=== PATIENT | female | born 2000 | race Caucasian/White ===

== ENCOUNTER → 2022-01-22 | Outpatient (REF) | payer OTHER | LOC: M SFHCWAGY 17:23 | PROVIDERS: ATTEND Nurse Practitioner Family | DX: Z12.4 Encounter for screening for malignant neoplasm of cervix (principal) ==

== ENCOUNTER → 2022-05-20 | Outpatient (REF) | payer OTHER | LOC: M PLALAB 11:03 | PROVIDERS: ATTEND Advanced Practice Midwife | DX: Z53.9 Procedure and treatment not carried out, unspecified reason (principal) ==

== ENCOUNTER → 2022-06-23 | Outpatient (REF) | payer OTHER ==
[2022-06-23 13:48] LABS: GC DNA AMPLIFICATION NEGATIVE (NEGATIVE)
== END ==
LOC: M SFHCLERA 11:19
PROVIDERS: ATTEND Student in an Organized Health Care Education/Training Program
DX: Z12.4 Encounter for screening for malignant neoplasm of cervix (principal); Z20.2 Contact with and (suspected) exposure to infections with a predominantly sexual mode of transmission
CPT/HCPCS: 87661; 87810; 87850; G0463

== ENCOUNTER → 2022-08-04 | Outpatient (CLI) | payer OTHER | LOC: M WHC 10:31 | PROVIDERS: ATTEND Obstetrics & Gynecology | DX: O32.1XX0 Maternal care for breech presentation, not applicable or unspecified (principal); Z3A.21 21 weeks gestation of pregnancy ==

== ENCOUNTER → 2022-09-24 | Outpatient (CLI) | payer OTHER | LOC: M LAB 08:13 | PROVIDERS: ATTEND Advanced Practice Midwife | DX: O99.810 Abnormal glucose complicating pregnancy (principal); Z3A.00 Weeks of gestation of pregnancy not specified ==

== ENCOUNTER → 2022-11-18 | Outpatient (REF) | payer OTHER | LOC: M PLALAB 15:26 | PROVIDERS: ATTEND Advanced Practice Midwife | DX: O24.410 Gestational diabetes mellitus in pregnancy, diet controlled (principal) | CPT/HCPCS: 87081; G0463 ==

== ENCOUNTER → 2022-11-26 | Outpatient (CLI) | payer OTHER ==
[~2022-11-26] MED LIST: ABIL1TAB11 PO; IBUP80TA PO; PRENTAB9 PO; WELLTAB38 PO
[2022-11-26 16:00] LABS: HEMATOCRIT 40.9 % (36.0-47.0); HEMOGLOBIN 13.5 g/dl (12.0-15.5); MEAN CORPUSCULAR HEMOGLOBIN 29.5 pg (27.0-33.0); MEAN CORPUSCULAR VOLUME 89.3 fl (80.0-96.0); PLATELET COUNT, AUTOMATED 179 10^3/uL (150-450); RED BLOOD COUNT 4.58 10^6/uL (4.00-5.40)
[2022-11-26 16:17] LABS: URIC ACID 5.6 MG/DL (3.1-7.8)
[2022-11-26 16:19] LABS: LDH LACTATE DEHYDROGENASE 183 U/L (120-246)
[2022-11-26 16:20] LABS: ALT/SGPT 67 U/L (7.0-40); AST/SGOT 45 U/L (<34); BILIRUBIN,TOTAL 0.6 MG/DL (0.3-1.2); CREATININE FOR GFR 0.75 MG/DL (0.55-1.30); GLOMERULAR FILTRATION RATE > 60.0 (>60)
[2022-11-26 16:22] LABS: TOTAL PROTEIN,RANDOM URINE 232.9 MG/DL (0.0-14.0)
== END ==
LOC: M PLALAB 14:30
PROVIDERS: ATTEND Advanced Practice Midwife
DX: O16.3 Unspecified maternal hypertension, third trimester (principal); Z3A.37 37 weeks gestation of pregnancy; O24.410 Gestational diabetes mellitus in pregnancy, diet controlled
CPT/HCPCS: 36415; 82247; 82565; 82570; 83615; 84156; 84450; 84460; 84550; 85027; G0463

== ENCOUNTER 2022-11-27 11:30 | Inpatient (IN) | payer OTHER ==
[2022-11-27] VITALS (15 sets, daily range): BP systolic 132–162; BP diastolic 80–114
[~2022-11-27] VITALS: Ht 152.4 cm; Wt 80.8 kg
[2022-11-27] MEDS ORDERED: PRENTAB9 PO (11:44)
[2022-11-27] MEDS ORDERED: OXYTOCIN DRIP 30 UNITS in IV 1 EA IV PRN (11:50)
[2022-11-27] MEDS ORDERED: CARBOPROST TROMETHAMINE 250 MCG/ML AMP IM PRN (11:50)
[2022-11-27] MEDS ORDERED: TRANEXAMIC ACID INJection 1,000 MG in NS 100 ML IV PRN (11:50)
[2022-11-27] MEDS ORDERED: LIDOCAINE 1% MDV 20ML VIAL INFIL PRN (11:50)
[2022-11-27] MEDS ORDERED: ABIL1TAB11 PO ×2 (11:52→13:21)
[2022-11-27] MEDS ORDERED: WELLTAB38 PO ×2 (11:53→13:22)
[2022-11-27] MEDS ORDERED: HOME MED LIST COMPLETE! XX SCH (12:25)
[2022-11-27 12:28] LABS: HEMATOCRIT 40.7 % (36.0-47.0); HEMOGLOBIN 13.3 g/dl (12.0-15.5); MEAN CORPUSCULAR HEMOGLOBIN 28.7 pg (27.0-33.0); MEAN CORPUSCULAR HGB CONC 32.7 g/dl (32.0-36.5); MEAN CORPUSCULAR VOLUME 87.7 fl (80.0-96.0); PLATELET COUNT, AUTOMATED 161 10^3/uL (150-450); RED BLOOD COUNT 4.64 10^6/uL (4.00-5.40)
[2022-11-27] MEDS: miSOPROStol 50MCG 1/2 TABLET PO SCH ×3 (12:50→21:04)
[2022-11-27 12:55] LABS: LDH LACTATE DEHYDROGENASE 212 U/L (120-246)
[2022-11-27 12:56] LABS: ALT/SGPT 66 U/L (7.0-40); AST/SGOT 47 U/L (<34); BILIRUBIN,TOTAL 0.6 MG/DL (0.3-1.2); CREATININE FOR GFR 0.65 MG/DL (0.55-1.30); GLOMERULAR FILTRATION RATE > 60.0 (>60)
[2022-11-27 13:20] LABS: URIC ACID 5.2 MG/DL (3.1-7.8)
[2022-11-27] MEDS: LR 1,000 ML IV SCH (19:50)
[2022-11-27] MEDS: buPROPion **XL** TABLET 150MG (WELLBUTRIN XL) PO SCH (21:04)
[2022-11-28] VITALS (47 sets, daily range): BP systolic 125–185; BP diastolic 75–116
[2022-11-28] MEDS: miSOPROStol 50MCG 1/2 TABLET PO SCH ×4 (01:13→13:00)
[2022-11-28] MEDS: LR 1,000 ML IV SCH ×4 (03:50→20:34)
[2022-11-28] MEDS ORDERED: OXYTOCIN DRIP 30 UNITS in IV 1 EA IV SCH (09:45)
[2022-11-28] MEDS ORDERED: PROMETHAZINE 25MG/ML 1ML VIAL IV ONE (15:15)
[2022-11-28] MEDS: NALBUPHINE HCL 1MG/0.1ML (100MG/10ML) MDV IV PRN ×2 (15:27→15:45)
[2022-11-28] MEDS ORDERED: LABETALOL 100MG/20ML VIAL IV STA (17:09)
[2022-11-28] MEDS ORDERED: ONDANSETRON 4MG 2ML VIAL IV PRN ×2 (18:30→19:40)
[2022-11-28] MEDS ORDERED: EPIDURAL/PCA KEYS XX PRN (19:40)
[2022-11-28] MEDS ORDERED: LR 500 ML IV PRN (19:40)
[2022-11-28] MEDS ORDERED: NALOXONE INJ 0.4MG/1ML VIAL IV PRN (19:40)
[2022-11-28] MEDS ORDERED: diphenhydrAMINE 50MG/ML VIAL IV PRN (19:40)
[2022-11-28] MEDS ORDERED: ePHEDrine SULFATE 25 MG/5 ML(5MG/ML) SYRINGE IVP PRN (19:40)
[2022-11-28] MEDS: FENTANYL/ROPIVACAINE/NACL BAG 100 ML EPIDURAL SCH (20:17)
[2022-11-28] MEDS: buPROPion **XL** TABLET 150MG (WELLBUTRIN XL) PO SCH (21:46)
[2022-11-29] VITALS (22 sets, daily range): BP systolic 124–179; BP diastolic 69–108; O2SAT 97–100
[2022-11-29] MEDS: LR 1,000 ML IV SCH (03:12)
[2022-11-29] MEDS: FENTANYL/ROPIVACAINE/NACL BAG 100 ML EPIDURAL SCH (04:08)
[2022-11-29] MEDS ORDERED: IBUPROFEN 600MG TAB PO PRN (05:35)
[2022-11-29] MEDS ORDERED: ACETAMINOPHEN 500 MG TAB PO PRN (05:35)
[2022-11-29] MEDS ORDERED: DIBUCAINE 1% OINTMENT 30GM TOP PRN (05:35)
[2022-11-29] MEDS ORDERED: IBUPROFEN 800 MG TAB PO PRN (05:35)
[2022-11-29] MEDS ORDERED: RHOGAM 300MCG (1500IU) INJ IM SCH (05:35)
[2022-11-29] MEDS ORDERED: ONDANSETRON 4MG 2ML VIAL IV PRN (05:35)
[2022-11-29] MEDS ORDERED: ANUSOL HC CREAM 30GM TOP PRN (05:35)
[2022-11-29] MEDS ORDERED: DOCUSATE SODIUM 100MG CAPSULE PO PRN (05:35)
[2022-11-29] MEDS ORDERED: OXYTOCIN DRIP 30 UNITS in IV 1 EA IV SCH ×3 (05:35→23:40)
[2022-11-29] MEDS ORDERED: LR 1,000 ML IV SCH (05:35)
[2022-11-29] MEDS: PRENATAL VITAMINS CHEWABLE TABLET PO SCH (07:55)
[2022-11-29] MEDS: ACETAMINOPHEN TAB 650MG DOSE (2X325MG) PO PRN (12:23)
[2022-11-29] MEDS: buPROPion **XL** TABLET 150MG (WELLBUTRIN XL) PO SCH (20:57)
[2022-11-29] MEDS ORDERED: OXYTOCIN 30UNITS IN 0.9% NaCl 500ML IV BAG As Ordered ONE (23:34)
[2022-11-29] MEDS ORDERED: LABETALOL 100MG/20ML VIAL IV STA (23:36)
[2022-11-29] MEDS ORDERED: LABETALOL 100MG/20ML VIAL As Ordered ONE (23:38)
[2022-11-29 23:41] LABS: HEMATOCRIT 32.6 % (36.0-47.0); HEMOGLOBIN 10.7 g/dl (12.0-15.5); MEAN CORPUSCULAR HGB CONC 32.8 g/dl (32.0-36.5); MEAN CORPUSCULAR VOLUME 88.3 fl (80.0-96.0); PLATELET COUNT, AUTOMATED 129 10^3/uL (150-450); RED BLOOD COUNT 3.69 10^6/uL (4.00-5.40); WHITE BLOOD COUNT 14.5 10^3/uL (4.0-10.0)
[2022-11-30] VITALS (26 sets, daily range): BP systolic 124–168; BP diastolic 70–106; O2SAT 96–100
[2022-11-30 00:01] LABS: INR 0.98; PARTIAL THROMBOPLASTIN TIME 29.4 SECONDS (24.8-34.2); PROTHROMBIN TIME 12.7 SECONDS (12.5-14.5)
[2022-11-30] MEDS ORDERED: MORPHINE 4 MG/ML 1ML VIAL IV PRN (00:05)
[2022-11-30] MEDS ORDERED: PERCOCET 5MG/325MG TAB PO PRN ×2 (00:05)
[2022-11-30 00:11] LABS: URIC ACID 5.3 MG/DL (3.1-7.8)
[2022-11-30 00:14] LABS: ALBUMIN 1.9 G/DL (3.2-5.2); ALKALINE PHOSPHATASE 232 U/L (46-116); ALT/SGPT 46 U/L (7.0-40); AST/SGOT 36 U/L (<34); BILIRUBIN,TOTAL 0.4 MG/DL (0.3-1.2); BLOOD UREA NITROGEN 8 MG/DL (9-23); CALCIUM LEVEL 8.6 MG/DL (8.5-10.1); CARBON DIOXIDE LEVEL 25 MMOL/L (20-31); CHLORIDE LEVEL 109 MMOL/L (98-107); CREATININE FOR GFR 0.73 MG/DL (0.55-1.30); GLOMERULAR FILTRATION RATE > 60.0 (>60); GLUCOSE, FASTING 82 MG/DL (60-100); POTASSIUM SERUM 3.8 MMOL/L (3.5-5.1); SODIUM LEVEL 140 MMOL/L (136-145)
[2022-11-30] MEDS: PRENATAL VITAMINS CHEWABLE TABLET PO SCH (08:54)
[2022-11-30] MEDS: LABETALOL 200 MG TAB PO SCH ×2 (08:58→21:16)
[2022-11-30] MEDS ORDERED: NIFEdipine 30MG XL TAB PO STA (11:42)
[2022-11-30] MEDS: buPROPion **XL** TABLET 150MG (WELLBUTRIN XL) PO SCH (21:16)
[2022-12-01 02:00] VITALS: BP 118/69; O2SAT 99
[2022-12-01 06:00] VITALS: BP 134/81; O2SAT 98
[2022-12-01] MEDS ORDERED: MEASLES,MUMPS,RUBELLA VACCINE INJ (MMR-II) SC.IMMUN ONE (09:00)
[2022-12-01 09:22] VITALS: BP 140/88
[2022-12-01] MEDS: LABETALOL 200 MG TAB PO SCH (09:22)
[2022-12-01] MEDS: ACETAMINOPHEN TAB 650MG DOSE (2X325MG) PO PRN (09:22)
[2022-12-01] MEDS: PRENATAL VITAMINS CHEWABLE TABLET PO SCH (09:22)
[2022-12-01 09:30] VITALS: BP 140/88
[2022-12-01 10:00] VITALS: BP 137/90; O2SAT 97
[2022-12-01 11:29] LABS: HEMATOCRIT 32.4 % (36.0-47.0); HEMOGLOBIN 10.4 g/dl (12.0-15.5); MEAN CORPUSCULAR HEMOGLOBIN 28.9 pg (27.0-33.0); MEAN CORPUSCULAR HGB CONC 32.1 g/dl (32.0-36.5); PLATELET COUNT, AUTOMATED 152 10^3/uL (150-450); WHITE BLOOD COUNT 10.9 10^3/uL (4.0-10.0)
[2022-12-01] MEDS ORDERED: IBUP80TA PO (11:54)
== END 2022-12-01 15:30 | disposition home or self-care (01) | DRG 807 ==
LOC: M LDI 11:30 → M OBS 11-29 07:45
PROVIDERS: ADMIT Advanced Practice Midwife; ATTEND Advanced Practice Midwife
PROC: 10E0XZZ Delivery of Products of Conception, External Approach (ICD-10-PCS; principal; 2022-11-29)
PROC: 0HQ9XZZ Repair Perineum Skin, External Approach (ICD-10-PCS; 2022-11-29)
DX: O11.4 Pre-existing hypertension with pre-eclampsia, complicating childbirth (principal); Z37.0 Single live birth; Z3A.37 37 weeks gestation of pregnancy; F32.A Depression, unspecified; O99.344 Other mental disorders complicating childbirth; F41.9 Anxiety disorder, unspecified; O24.410 Gestational diabetes mellitus in pregnancy, diet controlled; O70.0 First degree perineal laceration during delivery

== ENCOUNTER → 2023-02-03 | Outpatient (REF) | payer OTHER | LOC: M SFHCLERA 11:12 | PROVIDERS: ATTEND Physician Assistant | DX: J02.9 Acute pharyngitis, unspecified (principal) ==

== ENCOUNTER → 2023-02-10 | Outpatient (CLI) | payer OTHER ==
[2023-02-10 11:00] LABS: APPEARANCE, URINE MANUAL CLEAR (CLEAR); COLOR, URINE MANUAL LT YELLOW (YELLOW)
[2023-02-10 11:01] LABS: BILIRUBIN, URINE MANUAL NEGATIVE (NEGATIVE); GLUCOSE, URINE (UA) MANUAL NEGATIVE (NEGATIVE); KETONE, URINE MANUAL NEGATIVE (NEGATIVE); LEUKOCYTE ESTERASE, URINE MAN POSITIVE (NEGATIVE); NITRITE, URINE MANUAL NEGATIVE (NEGATIVE); PROTEIN, URINE MANUAL NEGATIVE (NEGATIVE); SPECIFIC GRAVITY,URINE MANUAL 1.005 (1.002-1.035); UROBILINOGEN, URINE MANUAL NORMAL (NORMAL)
[2023-02-10 11:02] LABS: BLOOD URINE MANUAL NEGATIVE (NEGATIVE)
[2023-02-10 11:06] LABS: BASO # 0.1 10^3/uL (0.0-0.2); BASO % 0.7 % (0.0-1.0); EOS # 0.1 10^3/uL (0.0-0.5); EOS % 1.5 % (0.0-3.0); HEMATOCRIT 43.5 % (36.0-47.0); HEMOGLOBIN 13.4 g/dl (12.0-15.5); LYMPH # 2.6 10^3/uL (1.5-5.0); LYMPH % 35.8 % (24.0-44.0); MEAN CORPUSCULAR HEMOGLOBIN 26.3 pg (27.0-33.0); MEAN CORPUSCULAR HGB CONC 30.8 g/dl (32.0-36.5); MEAN CORPUSCULAR VOLUME 85.3 fl (80.0-96.0); MONO # 0.4 10^3/uL (0.0-0.8); MONO % 5.4 % (2.0-8.0); NEUTROPHILS # 4.2 10^3/uL (1.5-8.5); NEUTROPHILS % 56.3 % (36.0-66.0); PLATELET COUNT, AUTOMATED 274 10^3/uL (150-450); WHITE BLOOD COUNT 7.4 10^3/uL (4.0-10.0)
[2023-02-10 11:17] LABS: BACTERIA, URINE SMALL AMOUNT; HYALINE CAST, URINE NONE SEEN /lpf (0-1); RBC, URINE 0-1 /hpf (0-3); SQUAMOUS EPITHELIAL CELL URINE MOD AMOUNT /hpf (SMALL AMT)
[2023-02-10 11:18] LABS: MUCUS, URINE SMALL AMOUNT (NEGATIVE)
[2023-02-10 11:34] LABS: LIPASE 32 U/L (12-53)
[2023-02-10 11:37] LABS: ALKALINE PHOSPHATASE 124 U/L (46-116); ALT/SGPT 161 U/L (7.0-40); AST/SGOT 37 U/L (<34); BILIRUBIN,TOTAL 0.3 MG/DL (0.3-1.2); BLOOD UREA NITROGEN 11 MG/DL (9-23); CALCIUM LEVEL 9.6 MG/DL (8.5-10.1); CARBON DIOXIDE LEVEL 26 MMOL/L (20-31); CHLORIDE LEVEL 105 MMOL/L (98-107); CREATININE FOR GFR 0.71 MG/DL (0.55-1.30); GLOMERULAR FILTRATION RATE > 60.0 (>60); GLUCOSE, FASTING 82 MG/DL (60-100); POTASSIUM SERUM 4.1 MMOL/L (3.5-5.1); SODIUM LEVEL 138 MMOL/L (136-145); TOTAL PROTEIN 7.9 G/DL (5.7-8.2)
[2023-02-10 11:40] LABS: THYROID STIMULATING HORMONE 4.261 uIU/ML (0.55-4.78)
[2023-02-10 12:18] LABS: HEMOGLOBIN A1c 5.2 % (4.0-6.0)
== END ==
LOC: M LAB 10:13
PROVIDERS: ATTEND Physician Assistant
DX: O24.419 Gestational diabetes mellitus in pregnancy, unspecified control (principal); R10.13 Epigastric pain; Z3A.00 Weeks of gestation of pregnancy not specified

== ENCOUNTER → 2023-03-16 | Outpatient (REF) | payer OTHER ==
[2023-03-16 18:05] LABS: APPEARANCE, URINE HAZY (CLEAR); BACTERIA, URINE AUTO 1+ (NEGATIVE); BILIRUBIN, URINE AUTO NEGATIVE (NEGATIVE); BLOOD, URINE BLOOD 3+ (NEGATIVE); COLOR, URINE YELLOW (YELLOW); GLUCOSE, URINE (UA) AUTO NEGATIVE (NEGATIVE); KETONE, URINE AUTO NEGATIVE (NEGATIVE); LEUKOCYTE ESTERASE, URINE AUTO TRACE (NEGATIVE); MUCUS, URINE SMALL (NEGATIVE); NITRITE, URINE AUTO NEGATIVE (NEGATIVE); PROTEIN, URINE AUTO NEGATIVE (NEGATIVE); RBC, URINE AUTO 6 /HPF (0-3); SPECIFIC GRAVITY URINE AUTO 1.017 (1.002-1.035); SQUAMOUS EPITHELIAL CELL UR AU 7 /HPF (0-6); TRANSITIONAL EPITHELIAL AUTO <1 /HPF; UROBILINOGEN, URINE AUTO 0.2 mg/dL (0.0-2.0); WBC, URINE AUTO 37 /HPF (0-3)
== END ==
LOC: M SFHCLERA 17:08
PROVIDERS: ATTEND Physician Assistant
DX: R30.0 Dysuria (principal)

== ENCOUNTER → 2023-03-23 | Outpatient (CLI) | payer OTHER ==
[2023-03-23 11:50] LABS: ALBUMIN 3.7 G/DL (3.2-5.2); ALKALINE PHOSPHATASE 96 U/L (46-116); ALT/SGPT 82 U/L (7.0-40); AST/SGOT 29 U/L (<34); BILIRUBIN,TOTAL 0.6 MG/DL (0.3-1.2); BLOOD UREA NITROGEN 13 MG/DL (9-23); CALCIUM LEVEL 9.2 MG/DL (8.5-10.1); CARBON DIOXIDE LEVEL 26 MMOL/L (20-31); CHLORIDE LEVEL 108 MMOL/L (98-107); CREATININE FOR GFR 0.86 MG/DL (0.55-1.30); GLOMERULAR FILTRATION RATE > 60.0 (>60); GLUCOSE, FASTING 94 MG/DL (60-100); POTASSIUM SERUM 3.9 MMOL/L (3.5-5.1); SODIUM LEVEL 140 MMOL/L (136-145); TOTAL PROTEIN 7.6 G/DL (5.7-8.2)
== END ==
LOC: M LAB 10:52
PROVIDERS: ATTEND Physician Assistant
DX: R74.8 Abnormal levels of other serum enzymes (principal)

== ENCOUNTER → 2023-07-29 | Outpatient (CLI) | payer OTHER | LOC: M RAD 10:43 | PROVIDERS: ATTEND Physician Assistant | DX: M54.50 Low back pain, unspecified (principal) ==